=== PATIENT | male | born 2000 | race Two or more races ===

== ENCOUNTER 2021-06-24 00:29 | Emergency (ER) | payer BC ==
[~2021-06-24] VITALS: Ht 177.8 cm; Wt 76.8 kg
[2021-06-24 00:40] VITALS: BP 132/78
[2021-06-24] MEDS ORDERED: DEXAMETHASONE 4 MG TABLET ONE (00:55)
[2021-06-24] MEDS ORDERED: ACETAMINOPHEN 500 MG TABLET ONE (00:55)
[2021-06-24] MEDS ORDERED: AMOXICILLIN 500 MG CAPSULE ONE (00:55)
[2021-06-24] MEDS ORDERED: AMOXICILLIN 500 MG CAPSULE PO ONE (01:00)
[2021-06-24] MEDS ORDERED: ACETAMINOPHEN 500 MG TABLET PO ONE (01:00)
[2021-06-24] MEDS ORDERED: DEXAMETHASONE 4 MG TABLET PO ONE (01:00)
== END 2021-06-24 01:07 ==
LOC: ED 00:30
DX: J02.0 Streptococcal pharyngitis (principal)
CPT/HCPCS: 87081; 87880; 99284